=== PATIENT | female | born 1995 | race Caucasian/White ===

== ENCOUNTER 2017-11-22 12:18 | Emergency (ER) | payer BC, OTHER ==
[~2017-11-22] VITALS: Ht 149.9 cm; Wt 70.3 kg
[2017-11-22] MEDS ORDERED: LEXAPRO20 MG PO (12:42)
[2017-11-22] MEDS ORDERED: XANAX1 MG PO (12:43)
[2017-11-22] MEDS ORDERED: IBUPROFEN 800800 M1 PO (12:43)
[2017-11-22] MEDS ORDERED: BIRTH CONTROL PORT (12:43)
[2017-11-22] MEDS ORDERED: ABILIFY10 MG PO (12:43)
[2017-11-22] MEDS ORDERED: MEDROLDOSEPACK PO (12:43)
[2017-11-22 14:55] VITALS: BP 123/75
[2017-11-22] MEDS ORDERED: ULTRAM 50MG TAB50 MG PO (15:22)
[2017-11-22] MEDS ORDERED: NORFLEX100 MG PO (15:22)
== END 2017-11-22 15:48 | disposition home or self-care (01) ==
LOC: ER 12:18
DX: R07.89 Other chest pain (principal); Z88.1 Allergy status to other antibiotic agents; Z88.5 Allergy status to narcotic agent